=== PATIENT | female | born 1985 | race Caucasian/White ===

== ENCOUNTER → 2016-05-24 | Outpatient (CLI) | payer OTHER ==
--- NOTE | 2016-05-24 14:29 | KCIC ---
PROCEDURE Thoracic spine radiographs HISTORY Thoracic spine pain, chronic pain COMPARISON None FINDINGS Three views of the thoracic spine are submitted. Thoracic vertebral body stature and AP alignment are preserved. Intrapediculate distance is maintained. There is very mild dextroscoliosis centered upon the mid thoracic spine. No acute fracture is identified. IMPRESSION Other than very minimal mid thoracic dextroscoliosis, there is no significant abnormality identified by radiographs. Electronically signed by: Ector Ornelas MD (May 24, 2016 14:28:09)
--- NOTE | 2016-05-24 14:30 | KCIC ---
PROCEDURE Two-view chest HISTORY Chest pain, chest tightness since 2015 COMPARISON None FINDINGS Two views of the chest are submitted. There is no lobar consolidation, pleural fluid, pneumothorax. Heart size is within normal limits. IMPRESSION There is no radiographic evidence of acute cardiopulmonary disease. Electronically signed by: Ector Ornelas MD (May 24, 2016 14:29:00)
== END | disposition home or self-care (01) ==
LOC: KCIC 13:53
PROVIDERS: ATTEND Physician Assistant Medical
DX: M54.6 Pain in thoracic spine (principal); R07.9 Chest pain, unspecified
CPT/HCPCS: 71020; 72072

== ENCOUNTER → 2016-06-08 | Outpatient (CLI) | payer OTHER ==
--- NOTE | 2016-06-08 12:27 | RAD ---
APPROVED REPORT Test Type: Exercise Stress Nurse/Tech: CAIO Blanton RN Test Indications: Chest pain Cardiac History: none, see EHR Medications: see EHr Medical History: none, see EHR Resting ECG: SR Resting Heart Rate: 90 bpm Resting Blood Pressure: 134/86mmHg Pretest Chest Pain: No chest pain Nurse/Tech Notes Lungs CTA, heart tones WNL Consent: The procedure was explained to the patient in lay terms. Informed consent was witnessed. Scotty eout was entered into [employer]. History and Stress Test performed by JEOVANY Diaz Stress Symptoms Dyspnea, reports slight chest pain last only seconds POST EXERCISE Reason for Termination: Reached target heart rate Target HR: Yes Max HR: 178 bpm 94% of Maximum Predicted HR: 190 bpm Exercise duration: 9:00 min:sec, 3 Stage Exercise capacity: 10METs Max Blood Pressure: 134/78mmHg Blood Pressure response to exercise: Normal blood pressure response during stress. Chest Pain: Yes. slight chest pain lasting seconds Arrhythmia: No. ST Change: No. INTERPRETATION Stress EKG Conclusion: The resting EKG showed a normal sinus rhythm. The stress EKG showed no evidence of ischemia. Conclusion 1. Good exercise tolerance. 2. No typical chest pain with exertion. 3. No significant arrhythmias with exertion. 4. No EKG evidence of stress-induced ischemia. 5. Low risk treadmill stress test.
== END | disposition home or self-care (01) ==
LOC: NM 09:13
PROVIDERS: ATTEND Physician Assistant Medical
DX: R07.9 Chest pain, unspecified (principal); Z87.891 Personal history of nicotine dependence
CPT/HCPCS: 93017